=== PATIENT | female | born 1980 | race Caucasian/White ===

== ENCOUNTER 2021-04-25 15:04 | Emergency (ER) | payer BC ==
[~2021-04-25] VITALS: Ht 160 cm; Wt 77.4 kg
[~2021-04-25 15:04] MED LIST: NO; ULTRAM50 M1 PO; VALTREX1 GM OR
[2021-04-25 16:01] LABS: HEMATOCRIT 42.1 % (37.0-47.0); HEMOGLOBIN 14.3 g/dl (12.0-16.0); IMMATURE GRANULOCYTES 0.3 % (0.0-5.0); MEAN CORPUSCULAR HGB 30.6 pG CALC (26.0-32.0); NEUT# 3.6 thou/uL (2.00-7.15); RED BLOOD COUNT 4.67 mill/uL (4.20-5.60); RED CELL DISTRI WIDTH 12.8 % (11.5-15.5)
[2021-04-25 16:10] LABS: ALBUMIN 4.8 g/dL (3.2-5.0); ALKALINE PHOSPHATASE 79 u/l (38-126); ANION GAP 13 (6-22 (CALC)); BILIRUBIN, TOTAL 1.2 mg/dL (0.0-1.4); BUN 9 mg/dL (7-17); BUN/CREATININE RATIO 12 (12-20 (CALC)); CARBON DIOXIDE 26 mmol/l (22-30); CHLORIDE 103 mmol/l (95-108); CREATININE 0.8 mg/dL (0.5-1.0); GFR > 60 ML/MIN (>=60 (CALC)); GFR FOR AFR.AMER. > 60 ML/MIN (>=60 (CALC)); LIPASE 72 u/l (23-300); MEAN CELL VOLUME 90.1 fL CALC (80.0-100.0); POTASSIUM 3.9 mmol/l (3.5-5.1); SGOT/AST 27 u/l (14-36); SODIUM 139 mmol/l (137-146); TOTAL PROTEIN 8.7 g/dL (6.3-8.2)
[2021-04-25 17:47] LABS: URINE BILIRUBIN - DIPSTICK NEGATIVE (NEGATIVE); URINE BLOOD DIPSTICK NEGATIVE (NEGATIVE); URINE CLARITY CLEAR; URINE COLOR YELLOW; URINE GLUCOSE - DIPSTICK NEGATIVE (NEGATIVE); URINE KETONE NEGATIVE (NEGATIVE); URINE LEUK ESTERASE NEGATIVE (Negative); URINE NITRITE - DIPSTICK NEGATIVE (Negative); URINE PROTEIN - DIPSTICK NEGATIVE (NEG-TRACE); URINE UROBILINOGEN - DIPSTICK 0.2 E.U./dL (0.2)
[2021-04-25 17:56] LABS: TSH, 3RD GENERATION 2.15 uIU/mL (0.47 - 4.68)
[2021-04-25] MEDS ORDERED: TORADOL PO (17:57)
[2021-04-25] MEDS ORDERED: MOTRIN800 MG PO (17:57)
[2021-04-25 18:04] VITALS: BP 129/73
== END 2021-04-25 18:15 | disposition home or self-care (01) | DRG 188 ==
LOC: ED 15:04
PROVIDERS: Emergency Medicine
DX: J90 Pleural effusion, not elsewhere classified (principal); Z90.710 Acquired absence of both cervix and uterus
CPT/HCPCS: Q9967

== ENCOUNTER 2021-11-25 16:26 | Emergency (ER) | payer BC ==
[~2021-11-25] VITALS: Ht 160 cm; Wt 80.0 kg
[2021-11-25] VITALS (12 sets, daily range): BP systolic 128–153; BP diastolic 83–113
[~2021-11-25 16:26] MED LIST changes: +MOTRIN800 MG PO; +TORADOL PO
[2021-11-25] MEDS ORDERED: MEDDOSEPAK PO (19:42)
[2021-11-25] MEDS ORDERED: PERCOCET 5/321 COMBO PO (19:42)
== END 2021-11-25 19:54 | disposition home or self-care (01) | DRG 552 ==
LOC: ED 16:26
DX: S16.1XXA Strain of muscle, fascia and tendon at neck level, initial encounter (principal); X58.XXXA Exposure to other specified factors, initial encounter